=== PATIENT | female | born 1950 | race African-American/Black ===

== ENCOUNTER 2019-07-08 09:15 | Inpatient (IN) | payer MEDICARE, OTHER ==
[~2019-07-08] VITALS: Ht 157.5 cm; Wt 76.2 kg
[2019-07-08] MEDS ORDERED: ASPIRIN 81MG TABLET PO ONE (11:00)
[2019-07-08 11:35] LABS: BASOPHILS % 1.7 % (0.0-2.0); EOSINOPHILS % 0.8 % (0.0-5.0); HEMATOCRIT. 24.8 % (36.0-48.0); HEMOGLOBIN. 8.5 g/dL (12.0-16.0); LYMPHOCYTES % 30.1 % (20.0-50.0); MEAN CORPUSCULAR HEMOGLOBIN 29.9 pg (28.0-32.0); MEAN CORPUSCULAR VOLUME 87.4 fL (81.0-99.0); MEAN PLATELET VOLUME 9.8 fl (7.4-10.4); NEUTROPHILS % 61.4 % (40.0-76.0); PLATELET 204 x1000/uL (130-400); RED BLOOD CELL COUNT 2.84 mill/uL (4.2-5.4); RED CELL DISTRIBUTION WIDTH 15.3 % (11.6-14.6)
[2019-07-08 11:40] LABS: CHLORIDE 112 mEq/L (98-107)
[2019-07-08 11:43] LABS: D-DIMER 0.2 mg/L FEU (<0.50); INR 1.1; PARTIAL THROMBOPLASTIN TIME 26.2 sec (23.4-31.0); PROTHROMBIN TIME 11.3 sec (9.6-11.0)
[2019-07-08] MEDS ORDERED: ONDANSETRON HCL 4MG/2ML INJ IV PRN (13:30)
[2019-07-08] MEDS ORDERED: HYDROCODONE/ACETAMINOPHEN 5/325MG TABLET PO PRN (13:30)
[2019-07-08] MEDS ORDERED: IOHEXOL-350 100 ML BOTTLE ONE (14:17)
[2019-07-08] MEDS: LORAZEPAM 0.5MG TABLET PO PRN (15:02)
[2019-07-08 15:11] LABS: CREATINE KINASE 77 IU/L (26-192)
[2019-07-08 15:12] LABS: CREATINE KINASE MB FRACTION < 1.0 ng/mL (0.5-3.6)
[2019-07-08] MEDS ORDERED: MORPHINE SULFATE 2 MG/ML CPJ (NOT FOR IM USE) IV PRN (17:35)
[2019-07-08 21:45] VITALS: BP 117/60
[2019-07-08] MEDS ORDERED: SODIUM CHLORIDE 0.9% 1,000 ML IV SCH (22:00)
[2019-07-08 23:53] LABS: CREATINE KINASE 69 IU/L (26-192)
[2019-07-08 23:54] LABS: CREATINE KINASE MB FRACTION < 1.0 ng/mL (0.5-3.6)
[2019-07-09] VITALS (7 sets, daily range): BP systolic 107–122; BP diastolic 50–71
[2019-07-09] MEDS ORDERED: DIPHENHYDRAMINE 50MG/ML VIAL IM PRN
[2019-07-09] MEDS: LORAZEPAM 0.5MG TABLET PO PRN ×2 (00:33→06:35)
[2019-07-09 03:05] LABS: CLARITY URINE TURBID (CLEAR); COLOR URINE YELLOW (YELLOW); KETONES URINE NEGATIVE (NEGATIVE); LEUKOCYTE ESTERASE URINE 1+ (NEGATIVE); NITRITE URINE NEGATIVE (NEGATIVE); OCCULT BLOOD URINE NEGATIVE (NEGATIVE); PROTEIN URINE NEGATIVE (NEGATIVE); SPECIFIC GRAVITY URINE 1.042 (1.005-1.030)
[2019-07-09] MEDS: FOLIC ACID 1MG TABLET PO SCH (08:55)
[2019-07-09] MEDS: ASPIRIN 81MG EC TABLET PO SCH (08:55)
[2019-07-09] MEDS: THIAMINE HCL 100MG TABLET PO SCH (08:55)
[2019-07-09] MEDS: ENOXAPARIN 40MG/0.4ML SYR SUBCUT SCH (08:56)
[2019-07-09] MEDS: TRAMADOL 50MG TABLET PO PRN ×2 (13:52→20:45)
[2019-07-09] MEDS ORDERED: CEFTRIAXONE 1 G PREMIX 50 ML IV SCH (15:00)
[2019-07-09] MEDS: CLONAZEPAM 1MG TABLET PO SCH ×2 (17:46→20:41)
[2019-07-09 18:15] LABS: TOTAL IRON BINDING CAPACITY 323 ug/dL (250-450)
[2019-07-09 18:41] LABS: VITAMIN B12 SERUM 635 pg/mL (211-911)
[2019-07-09 18:42] LABS: FOLIC ACID (FOLATE) SERUM > 20.00 ng/mL (>5.38)
[2019-07-09 18:55] LABS: FERRITIN 13 ng/mL (10-291)
[2019-07-09] MEDS: PANTOPRAZOLE SODIUM 40 MG/VIAL IV SCH (20:22)
[2019-07-09] MEDS ORDERED: DIAZEPAM 5 MG TABLET PO SCH (21:00)
[2019-07-10] VITALS: BP 105/56
[2019-07-10 04:00] VITALS: BP 126/63
[2019-07-10] MEDS: CLONAZEPAM 1MG TABLET PO SCH ×3 (05:05→21:02)
[2019-07-10 07:15] LABS: BASOPHILS % 0.8 % (0.0-2.0); EOSINOPHILS % 4.2 % (0.0-5.0); HEMATOCRIT. 23.2 % (36.0-48.0); HEMOGLOBIN. 7.8 g/dL (12.0-16.0); MEAN CORPUSCULAR HEMOGLOBIN 29.5 pg (28.0-32.0); MEAN CORPUSCULAR VOLUME 87.6 fL (81.0-99.0); MEAN PLATELET VOLUME 9.2 fl (7.4-10.4); MONOCYTES % 7.3 % (2.0-8.0); NEUTROPHILS % 46.7 % (40.0-76.0); PLATELET 219 x1000/uL (130-400); RED BLOOD CELL COUNT 2.65 mill/uL (4.2-5.4); RED CELL DISTRIBUTION WIDTH 15.6 % (11.6-14.6)
[2019-07-10 07:20] LABS: CHLORIDE 111 mEq/L (98-107)
[2019-07-10 08:00] VITALS: BP 106/64
[2019-07-10] MEDS ORDERED: LORAZEPAM 2MG/ML CPJ IV PRN (08:30)
[2019-07-10] MEDS: ASPIRIN 81MG EC TABLET PO SCH (09:52)
[2019-07-10] MEDS: THIAMINE HCL 100MG TABLET PO SCH (09:52)
[2019-07-10] MEDS: FOLIC ACID 1MG TABLET PO SCH (09:52)
[2019-07-10] MEDS: ENOXAPARIN 40MG/0.4ML SYR SUBCUT SCH (09:54)
[2019-07-10] MEDS ORDERED: CEFTRIAXONE 1,000 MG in DEXTROSE 5% WATER 50 ML IV SCH (15:00)
[2019-07-10] MEDS ORDERED: LIDOCAINE HCL/PF 1% 10 MG/ML 5ML VIAL ONE ×2 (15:02→15:39)
[2019-07-10] MEDS ORDERED: PROPOFOL 200MG/20ML VIAL IV ONE (15:02)
[2019-07-10] MEDS ORDERED: MIDAZOLAM HCL 2 MG/2 ML VIAL ONE (15:04)
[2019-07-10] MEDS ORDERED: SIMETHICONE 40 MG/0.6 ML 30ML ONE (15:10)
[2019-07-10] MEDS: TRAMADOL 50MG TABLET PO PRN ×2 (17:59→23:42)
[2019-07-10 20:00] VITALS: BP 104/50
[2019-07-10] MEDS: PANTOPRAZOLE SODIUM 40 MG/VIAL IV SCH (21:02)
[2019-07-11] VITALS: BP 114/58
[2019-07-11 04:00] VITALS: BP 101/48
[2019-07-11] MEDS: CLONAZEPAM 1MG TABLET PO SCH ×3 (05:56→21:48)
[2019-07-11] MEDS: TRAMADOL 50MG TABLET PO PRN ×3 (05:57→21:47)
[2019-07-11 07:03] LABS: EOSINOPHILS % 3.9 % (0.0-5.0); LYMPHOCYTES % 38.6 % (20.0-50.0); MEAN CORPUSCULAR HEMOGLOBIN 29.5 pg (28.0-32.0); MEAN CORPUSCULAR VOLUME 88.4 fL (81.0-99.0); MEAN PLATELET VOLUME 9.4 fl (7.4-10.4); MONOCYTES % 7.9 % (2.0-8.0); NEUTROPHILS % 48.6 % (40.0-76.0); PLATELET 236 x1000/uL (130-400); RED BLOOD CELL COUNT 2.71 mill/uL (4.2-5.4); RED CELL DISTRIBUTION WIDTH 15.2 % (11.6-14.6)
[2019-07-11 07:23] LABS: CHLORIDE 112 mEq/L (98-107)
[2019-07-11] MEDS: FOLIC ACID 1MG TABLET PO SCH (09:07)
[2019-07-11] MEDS: THIAMINE HCL 100MG TABLET PO SCH (09:07)
[2019-07-11] MEDS: IRON SUCROSE COMPLEX 100 MG/5 ML ML IV SCH (13:15)
[2019-07-11] MEDS: DIPHENHYDRAMINE 50MG/ML VIAL IV PRN ×2 (18:25→21:57)
[2019-07-11 20:00] VITALS: BP 110/65
[2019-07-11] MEDS: PANTOPRAZOLE SODIUM 40 MG/VIAL IV SCH (21:47)
[2019-07-12] VITALS: BP 108/64
[2019-07-12 04:00] VITALS: BP 129/62
[2019-07-12] MEDS: CLONAZEPAM 1MG TABLET PO SCH ×2 (05:43→14:12)
[2019-07-12] MEDS: TRAMADOL 50MG TABLET PO PRN ×2 (05:49→12:22)
[2019-07-12] MEDS ORDERED: FENTANYL CITRATE/PF 50MCG/ML 2ML VIAL ONE (07:27)
[2019-07-12] MEDS ORDERED: PROPOFOL 200MG/20ML VIAL IV ONE (07:28)
[2019-07-12] MEDS ORDERED: ROCURONIUM BROMIDE 10MG/ML VIAL 5ML IV ONE (07:28)
[2019-07-12] MEDS ORDERED: MIDAZOLAM HCL 2 MG/2 ML VIAL ONE (07:28)
[2019-07-12] MEDS ORDERED: LIDOCAINE HCL/PF 1% 10 MG/ML 5ML VIAL ONE (07:29)
[2019-07-12] MEDS ORDERED: SUCCINYLCHOLINE CHLORIDE 200MG/10ML IV ONE (07:32)
[2019-07-12] MEDS ORDERED: EPHEDRINE SULFATE 50MG/ML VIAL ONE (07:34)
[2019-07-12] MEDS ORDERED: SODIUM CHLORIDE 0.9% 10ML VIAL ONE (07:34)
[2019-07-12] MEDS ORDERED: DEXAMETHASONE 4MG/ML 1ML VIAL ONE (08:56)
[2019-07-12] MEDS ORDERED: ONDANSETRON HCL 4MG/2ML INJ ONE (08:58)
[2019-07-12] MEDS ORDERED: METOCLOPRAMIDE HCL 10MG/2ML VIAL ONE (09:10)
[2019-07-12 09:38] VITALS: BP 112/48
[2019-07-12] MEDS: THIAMINE HCL 100MG TABLET PO SCH (09:55)
[2019-07-12] MEDS: FOLIC ACID 1MG TABLET PO SCH (09:55)
[2019-07-12 12:18] VITALS: BP 102/58
[2019-07-12] MEDS: IRON SUCROSE COMPLEX 100 MG/5 ML ML IV SCH (12:23)
[2019-07-12 14:00] VITALS: BP 102/58
[2019-07-12] MEDS ORDERED: DIPHENHYDRAMINE 25MG CAPSULE PO NR (16:53)
[2019-07-12 17:03] VITALS: BP 133/78
== END 2019-07-12 17:48 | disposition home or self-care (01) | DRG 241 ==
LOC: ER 09:15 → 8WST 13:07 → ENRESERV 19:54
PROVIDERS: ADMIT Internal Medicine Nephrology; ATTEND Internal Medicine Nephrology
PROC: 0DJ68ZZ Inspection of Stomach, Via Natural or Artificial Opening Endoscopic (ICD-10-PCS; principal; 2019-07-10)
DX: K29.61 Other gastritis with bleeding (principal); E87.8 Other disorders of electrolyte and fluid balance, not elsewhere classified; G90.8 Other disorders of autonomic nervous system; J43.9 Emphysema, unspecified; R55 Syncope and collapse; D63.8 Anemia in other chronic diseases classified elsewhere; R42 Dizziness and giddiness; K44.9 Diaphragmatic hernia without obstruction or gangrene; F41.9 Anxiety disorder, unspecified; I10 Essential (primary) hypertension; Z96.651 Presence of right artificial knee joint; I25.10 Atherosclerotic heart disease of native coronary artery without angina pectoris; M19.90 Unspecified osteoarthritis, unspecified site; Z79.01 Long term (current) use of anticoagulants; Z86.718 Personal history of other venous thrombosis and embolism
CPT/HCPCS: 36415; 70551; 71045; 71275; 80048; 81003; 82550; 82553; 82607; 82728; 82746; 83540; 83550; 83880; 84484; 85379; 93005; 93306; 93970; 99285; C1893; C9113; J0330; J0696; J1100; J1200; J1650; J2060; J2250; J2405; J2704; J2765; J3010; J3490; J7060; Q0163; Q9967